=== PATIENT | male | born 1995 | race Caucasian/White ===

== ENCOUNTER 2018-06-09 01:26 | Day surgery (SDC) | payer BC ==
[2018-06-03 15:50] LABS: PLATELET COUNT, AUTOMATED 342 K/uL (150-450)
--- NOTE | 2018-06-08 18:25 | HISTORY AND PHYSICAL ---
DATE OF ADMISSION: June 09, 2018 CHIEF COMPLAINT Gender dysphoria, for bilateral orchiectomy. HISTORY OF PRESENT ILLNESS Joby is a 22-year-old patient with gender dysphoria who is seeking male to female transformation. The patient was seen in the Urology Clinic on the 12 of April to discuss possible bilateral orchiectomy. The patient has been living as a female since 2015 and has legally changed her name and has assumed the female gender identity. She has three referral letters from two mental health professionals and her primary care physician, Dr. Shelbi Bocanegra, who has a practice emphasis on gender dysphoria and transgenderism. The patient is currently on estrogen therapy and desires bilateral orchiectomy in order to stop testosterone inhibitors as well as possibly decreasing her estrogen dose. Joby also desires cosmetic changing of the external gonads. I had an extensive discussion with her concerning this procedure as well as possible complete gender reassignment surgery, which she states that she is not interested in at this point in time. She understands that this is a permanent procedure with complete loss of potential fertility and need for life-long hormonal replacement. She appears completely informed of the risks and benefits of this procedure and has elected to proceed. PAST MEDICAL HISTORY 1. Gender dysphoria. 2. Moderate depression and anxiety since 2015, currently well controlled. PAST SURGICAL HISTORY [place] teeth [place] 2010. ALLERGIES PENICILLIN. CURRENT MEDICATIONS 1. Estradiol. 2. Provera. FAMILY HISTORY Noncontributory. SOCIAL HISTORY Patient is living as a female. She is a current student at and is single. She denies tobacco use. Does report occasional ethanol use socially. PHYSICAL EXAMINATION GENERAL: Patient is a well-developed, well-nourished male who is transitioning to female. HEENT: Normocephalic, atraumatic. CHEST: Clear to auscultation bilaterally. CARDIOVASCULAR: Regular rate and rhythm. ABDOMEN: Soft, nontender. No masses are palpated. GENITOURINARY: Deferred to the OR. EXTREMITIES: Without clubbing, cyanosis, or edema. NEUROLOGIC: Nonfocal. IMPRESSION A 22-year-old white female with a long history of gender dysphoria who currently desires bilateral orchiectomy. The patient has completed the standard of care guidelines for gender reassignment surgery from male to female. She has seen two mental health professionals as well as her primary care physician, who all agree that she meets the criteria. She has been living approximately three years as a female and appears completely informed to make an informed decision. PLAN We will perform bilateral simple orchiectomy. CHRISTIANO
[~2018-06-09] VITALS: Ht 182.9 cm; Wt 79.4 kg
[~2018-06-09 01:26] MED LIST: CEP500 PO; ESTR0.5T16 PO; ESTR2TAB26 PO; MEDR5TAB PO; MULT-865 PO
[2018-06-09] MEDS ORDERED: ROPIVACAINE 0.2% 20 ML VIAL ONE (07:42)
[2018-06-09] MEDS ORDERED: DEXAMETHASONE SOD PHOS 10MG/ML ONE (08:00)
[2018-06-09] MEDS ORDERED: PROPOFOL EMUL(*) 10MG/ML 20 ML 20 ML ONE (08:00)
[2018-06-09] MEDS ORDERED: ONDANSETRON 4 MG/2 ML VIAL ONE (08:00)
[2018-06-09] MEDS ORDERED: LIDOCAINE 2% IV 100 MG/5ML SYR ONE (08:01)
[2018-06-09] MEDS ORDERED: fentaNYL CITR 100 MCG/2 ML AMP ONE ×2 (08:02→11:02)
[2018-06-09] MEDS ORDERED: KETAMINE HCL-NS 50 MG/5 ML SYR ONE (08:03)
[2018-06-09] MEDS ORDERED: ePHEDrine 25 MG/5 ML DISP.SYR IVP ONE (08:04)
[2018-06-09] MEDS ORDERED: GENTAMICIN(*) 80 MG/2 ML VIAL 60 MG in NS 0.9% IRRIGATION 500 ML PLCT 500 ML IR ONE (08:20)
[2018-06-09] MEDS ORDERED: NORMOSOL R SOLN(*) 1000 ML BAG 1,000 ML IV PRN (08:20)
[2018-06-09] MEDS ORDERED: FAMOTIDINE 20 MG TAB PO ONE (08:20)
[2018-06-09] MEDS ORDERED: LIDOCAINE/SOD BICARB 8.4% SYR ID ONE (08:20)
[2018-06-09] MEDS ORDERED: MIDAZOLAM 2 MG/2 ML VIAL IVP PRN (08:20)
[2018-06-09] MEDS ORDERED: LEVOFLOXACIN/D5W*500 MG/100 ML 100 ML IVPB ONE (08:20)
[2018-06-09 08:37] VITALS: BP 139/94
[2018-06-09] MEDS ORDERED: [UNRECOGNIZED DRUG - CODE] (10:58)
[2018-06-09] MEDS ORDERED: DOCU-416 PO (11:01)
[2018-06-09] MEDS ORDERED: PROMETHAZINE 25 MG/ML 1 ML AMP ONE (11:02)
[2018-06-09] MEDS ORDERED: HYDR-653 PO (11:02)
--- NOTE | 2018-06-09 11:36 | OPERATIVE REPORT 1 ---
EVENT DATE: June 09, 2018 SURGEON: Ki Andrews MD ANESTHESIOLOGIST: Rodrigo Zuluaga MD ANESTHESIA: General. PREOPERATIVE DIAGNOSIS Gender dysphoria with a transition from male to female. POSTOPERATIVE DIAGNOSIS Gender dysphoria with a transition from male to female. PROCEDURE PERFORMED Bilateral simple orchiectomy. ESTIMATED BLOOD LOSS 5 cc. IV FLUIDS Crystalloids. DRAINS None. COMPLICATIONS None. PATHOLOGY Bilateral testis and cords for permanent analysis. CONDITION The patient taken to the recovery room awake and in stable condition. STATEMENT OF MEDICAL NECESSITY The patient is a 22-year-old patient who is currently living as a female for the past 3 years and desires bilateral orchiectomy. She has been evaluated by two mental health workers as well as her primary care md which has a focus emphasis on gender dysphoria and transgenderism. All of her providers feel that Joby is able to make an informed decision and after living as a female gender for the past 3 years is ready to move forward with a bilateral orchiectomy. Joby does not want a vaginoplasty or other surgical interventions at this point and only desires orchiectomy for discontinuation of her antiestrogens and possibly decreasing her estrogen dose as well as for cosmetic reasons. She understands that this is a permanent procedure with complete loss of fertility in the future as well as life-long dependent on hormone replacement. She also understands that this surgery will not alleviate any depression and/or anxiety over her gender dysphoria and will likely need continued treatment and follow up. Consent is signed and on the chart. DESCRIPTION OF PROCEDURE The patient was brought to the operating room and after general anesthetic was obtained, she was placed supine on the operating room table and prepped and draped sterilely. A short midline vertical incision was made in the superior scrotum in the midline and taken down through the dartos with electrocautery. 0.25% Ropivacaine was given along the skin edges just before the skin incision and down the median raphe. First, the left testis was addressed. It was delivered through the incision and dissection was taken up to the external ring, taking care to preserve the perigonadal fat pad and just ventral to the spermatic cord. Just outside the internal ring, the vas was isolated from the vessels and doubly cross-clamped with a right-angle and a suture ligature tied with a 3-0 Chromic. Following this, the cord was doubly ligated with 2 right- angle clamps. The cord was transected and the testis and cord delivered off the field. The left was marked with a stitch for pathologic identification. At this point, the cord stump was doubly suture ligated with 2-0 silk stitches. Following the release of the second clamp, the cord was inspected. There was no active bleeding around the cord or surrounding tissues. Antibiotic irrigation was used to irrigate this side. Following this, the right side was done in a similar manner, again, preserving the ventral perigonadal fat pad and isolating the cord from the vessels and suture ligating both the cord stump and vas with silk. At this point, the wound was copiously irrigated with antibiotic solution. 3-0 Vicryl was then used to close the deep layers, followed by a 4-0 Monocryl subcuticular stitch on the skin. Skin adhesive was placed along the skin edge. A sterile, fluff dressing with a scrotal support was then applied at the conclusion of the case. The patient was awakened in the operating room and taken to the recovery area in stable condition. The plan is to allow Eulogio to be discharged home today. She is to continue ice pack and scrotal support for the next 36-hours. She is given a prescription for [place], Colace and Motrin. We will plan to see her in the urology clinic in approximately 6 weeks time. She has also been instructed to follow up with her primary care doctor for any adjustments of her hormonal medicines as needed following bilateral orchiectomies. CHRISTIANO
[2018-06-09 11:45] VITALS: BP 138/86
[2018-06-09] MEDS ORDERED: APAP/HYDROCODONE 325/5 TAB PO PRN (12:00)
[2018-06-09 12:17] VITALS: BP 138/86
[2018-06-09 12:47] VITALS: BP 111/77
[2018-06-09 12:48] VITALS: BP 116/93
--- NOTE | 2018-06-09 13:20 | NUR ---
1145 SBAR REPORT WAS RECEIVED FROM Sherita NATH RN. PATIENTS LUNGS ARE CLEAR. SHE ARRIVED ON 1 LITER NASAL CANNULA AND WAS MOVED TO ROOM AIR ON ARRIVAL. BOWEL SOUNDS ARE HYPERACTIVE. HE HAS MESH UNDERWEAR ON WITH GAUZE AROUND SCROTAL AREA. THERE IS A SMALL AMOUNT BLEEDING AT THE OPERATIVE SITE. SHE HAS AN 18 GAUZE IN HER L. WRIST. DENIES ANY NAUSEA AND STATES PAIN IS 3/10. 1210 SBAR REPORT WAS GIVEN TO Holly CARRASCO 1240 SBAR REPORT WAS RECEIVED FROM Holly CARRASCO 1247 PATIENT BEGAN DOING ORTHOSTATICS. HE DENIES ANY DIZZINESS OR LIGHTHEADEDNESS 1248 PATIENT BEGAN STANDING AND IS STABLE ON HER FEET 1249 IV WAS SALINE LOCKED 1250 PATIENT VOIDED. WITHOUT DIFFICULTIRES 1255 PATIENT BEGAN GETTING DRESSED 1310 DC INSTRUCTIONS WERE GIVEN TO PATIENT AND GIRLFRIEND. THEY VERBALIZED UNDERSTANDING. 1315 IV WAS DC'D WITH CATH INTACT 1320 PATIENT WAS TAKEN OUT VIA WHEELCHAIR. SHE STATES PAIN IS 3/10. DENIES ANY NAUSEA. LUNGS ARE CLEAR. BOWEL SOUNDS ARE HYPERACTIVE. SMALL AMOUNT OF SCROTAL BLEEDING ON GAUZE. SEE DISCHARGE ASSESSMENT.
== END 2018-06-09 11:45 | disposition home or self-care (01) ==
LOC: EDSEX 01:26 → OR 01:26
PROVIDERS: ATTEND Urology
DX: F64.0 Transsexualism (principal)
CPT/HCPCS: 36415; 54520; 81001; 82671; 84402; 84403; 85025; 87088; 88307; J1100; J1956; J2001; J2250; J2370; J2405; J2550; J2704; J2795; J3010; J3490; 82310; 82374; 82435; 82565; 82947; 84132; 84295; 84520